=== PATIENT | male | born 1995 | race Caucasian/White ===

== ENCOUNTER 2023-04-13 06:46 | Emergency (ER) | payer OTHER ==
[~2023-04-13] VITALS: Ht 180 cm; Wt 77.0 kg
[2023-04-13] MEDS ORDERED: fentaNYL INJECTION 100 MCG/2 ML VIAL IVP ONE (07:15)
[2023-04-13] MEDS ORDERED: LACTATED RINGERS 1,000 ML 1,000 ML IV ONE ×2 (07:15→08:30)
[2023-04-13 07:34] LABS: BASOPHILS % (AUTO) 0 % (0-10); EOSINOPHILS % (AUTO) 0 % (0-10); HEMATOCRIT 45 % (40-54); HEMOGLOBIN 15.7 g/dL (13.3-17.7); LYMPHOCYTES % (AUTO) 5 % (12-44); MEAN CORPUSCULAR HEMOGLOBIN 30 pg (25-34); MEAN CORPUSCULAR HGB CONC 35 g/dL (32-36); MEAN CORPUSCULAR VOLUME 86 fL (80-99); MEAN PLATELET VOLUME 9.9 fL (9.0-12.2); MONOCYTES # (AUTO) 2.5 X 10^3 (0.0-1.0); MONOCYTES % (AUTO) 11 % (0-12); NEUTROPHILS # (AUTO) 18.3 X 10^3 (1.8-7.8); NEUTROPHILS % (AUTO) 84 % (42-75); PLATELET COUNT 273 10^3/uL (130-400)
[2023-04-13 07:40] LABS: ALBUMIN 4.3 GM/DL (3.2-4.5); POTASSIUM 3.7 MMOL/L (3.6-5.0)
[2023-04-13 07:41] LABS: CALCIUM 9.8 MG/DL (8.5-10.1)
[2023-04-13 07:43] LABS: TOTAL PROTEIN 7.8 GM/DL (6.4-8.2)
[2023-04-13 07:44] LABS: BILIRUBIN,TOTAL 1.4 MG/DL (0.1-1.0)
[2023-04-13 07:46] LABS: CREATININE SERUM 1.57 MG/DL (0.60-1.30)
--- NOTE | 2023-04-13 07:52 | ED Abdominal Pain ---
General Chief Complaint: Abdominal/GI Problems Stated Complaint: PX ON LEFT SIDE,ABD & BACK PX Nursing Triage Note: PT AMB TO [facility] WITH FAMILY WITH C/O L BACK AND ABD PAIN X2 DAYS THAT IS CONSTANT. PT HAS TAKEN IBUPROFEN WITHOUT RELIEF Source of Information: Patient Exam Limitations: No Limitations History of Present Illness Date Seen by Provider: Apr 13, 2023 Time Seen by Provider: 07:06 Initial Comments This 27 year old gentleman presents to the ER accompanied by his parents with left sided abdominal, flank pain, and lower back pain. Pain started 2 days ago and has gradually worsened. He denies any associated symptoms such as nausea, diarrhea, constipation, diarrhea, fever, chills, hematuria, or dysuria. He reports his pain as 10/10. He reports prior episodes of pain in this area after drinking alcohol, but he denies any recent alcohol use. His parents are concerned about a possible ureteral stone. Allergies and Home Medications Allergies Coded Allergies: No Known Drug Allergies (Unverified , 04/13/23) Patient Home Medication List Home Medication List Reviewed: Yes Review of Systems Review of Systems Constitutional: no symptoms reported EENTM: No Symptoms Reported Respiratory: No Symptoms Reported Cardiovascular: No Symptoms Reported Gastrointestinal: See HPI Genitourinary: No Symptoms Reported Musculoskeletal: no symptoms reported Skin: no symptoms reported Psychiatric/Neurological: No Symptoms Reported Endocrine: No Symptoms Reported Hematologic/Lymphatic: No Symptoms Reported Past Rsxapol-Dgdlwc-Eluzgu Hx Patient Social History Tobacco Use?: No Use of E-Cig and/or Vaping dev: No Substance use?: No Alcohol Use?: Yes Alcohol Frequency: Rarely Pt feels they are or have been: No Immunizations Up To Date Influenza Vaccine Up-to-Date: No; Not Current Past Medical History Surgery/Hospitalization HX: BLADDER SURGERY CHILD Surgeries: Yes Bladder Surgery (Urinary tract surgery as a young child to correct urinary frequency) Respiratory: No Cardiac: No Neurological: No Reproductive Disorders: No Genitourinary: No Gastrointestinal: Yes (Urinary frequency as a child, surgically corrected) Musculoskeletal: No HEENT: No Cancer: No Did You Recieve Any Treatments: No Psychosocial: No Integumentary: No Physical Exam Vital Signs Vital Signs - First Documented 04/13/23 07:03 Temp 37.4 Pulse 97 Resp 17 B/P (MAP) 154/111 (125) Pulse Ox 99 O2 Delivery Room Air Capillary Refill : Height/Weight/BMI Height: '" Weight: lbs. oz. kg; 23.00 BMI Method: General Appearance: WD/WN, no apparent distress HEENT: normal ENT inspection, pharynx normal Neck: normal inspection Respiratory: lungs clear, normal breath sounds, no respiratory distress Cardiovascular: regular rate, rhythm, no edema, no murmur Gastrointestinal: normal bowel sounds, soft; No distended; tenderness ( Tenderness throughout the left abdomen and flank) Extremities: normal inspection, no pedal edema Back: No CVA tenderness (R); CVA tenderness (L) (Minimal) Neurologic/Psychiatric: machine group leader II-XII nml as tested, no motor/sensory deficits, alert, normal mood/affect, oriented x 3 Skin: normal color, warm/dry Focused Exam Lactate Level 04/13/23 08:25: Lactic Acid Level 1.75 Lactic Acid Level Laboratory Tests Test 04/13/23 08:25 Lactic Acid Level 1.75 MMOL/L (0.50-2.00) Progress/Results/Core Measures Results/Orders Lab Results Laboratory Tests Test 04/13/23 07:19 04/13/23 07:34 04/13/23 08:25 Range/Units White Blood Count 22.0 H 4.3-11.0 10^3/uL Red Blood Count 5.17 4.30-5.52 10^6/uL Hemoglobin 15.7 13.3-17.7 g/dL Hematocrit 45 40-54 % Mean Corpuscular Volume 86 80-99 fL Mean Corpuscular Hemoglobin 30 25-34 pg Mean Corpuscular Hemoglobin Concent 35 32-36 g/dL Red Cell Distribution Width 13.2 10.0-14.5 % Platelet Count 273 130-400 10^3/uL Mean Platelet Volume 9.9 9.0-12.2 fL Immature Granulocyte % (Auto) 1 % Neutrophils (%) (Auto) 84 H 42-75 % Lymphocytes (%) (Auto) 5 L 12-44 % Monocytes (%) (Auto) 11 0-12 % Eosinophils (%) (Auto) 0 0-10 % Basophils (%) (Auto) 0 0-10 % Neutrophils # (Auto) 18.3 H 1.8-7.8 X 10^3 Lymphocytes # (Auto) 1.0 1.0-4.0 X 10^3 Monocytes # (Auto) 2.5 H 0.0-1.0 X 10^3 Eosinophils # (Auto) 0.0 0.0-0.3 10^3/uL Basophils # (Auto) 0.0 0.0-0.1 10^3/uL Immature Granulocyte # (Auto) 0.1 0.0-0.1 10^3/uL Prothrombin Time 16.2 H 12.2-14.7 SEC INR Comment 1.2 0.8-1.4 Activated Partial Thromboplast Time 33 24-35 SEC Sodium Level 137 135-145 MMOL/L Potassium Level 3.7 3.6-5.0 MMOL/L Chloride Level 105 98-107 MMOL/L Carbon Dioxide Level 19 L 21-32 MMOL/L Anion Gap 13 5-14 MMOL/L Blood Urea Nitrogen 20 H 7-18 MG/DL Creatinine 1.57 H 0.60-1.30 MG/DL Estimat Glomerular Filtration Rate 61 BUN/Creatinine Ratio 13 Glucose Level 140 H 70-105 MG/DL Calcium Level 9.8 8.5-10.1 MG/DL Corrected Calcium 9.6 8.5-10.1 MG/DL Total Bilirubin 1.4 H 0.1-1.0 MG/DL Aspartate Amino Transf (AST/SGOT) 12 5-34 U/L Alanine Aminotransferase (ALT/SGPT) 30 0-55 U/L Alkaline Phosphatase 64 40-136 U/L C-Reactive Protein High Sensitivity 22.06 H 0.00-0.50 MG/DL Total Protein 7.8 6.4-8.2 GM/DL Albumin 4.3 3.2-4.5 GM/DL Lipase 11 8-78 U/L Urine Color DARK YELLOW Urine Clarity CLOUDY Urine pH 6.0 5-9 Urine Specific [place] >=1.030 1.016-1.022 Urine Protein 3+ H NEGATIVE Urine Glucose (UA) NEGATIVE NEGATIVE Urine Ketones 2+ H NEGATIVE Urine Nitrite NEGATIVE NEGATIVE Urine Bilirubin 1+ H NEGATIVE Urine Urobilinogen 0.2 < = 1.0 MG/DL Urine Leukocyte Esterase 1+ H NEGATIVE Urine RBC (Auto) 3+ H NEGATIVE Urine RBC 25-50 H /HPF Urine WBC >100 H /HPF Urine Crystals NONE /LPF Urine Bacteria MODERATE H /HPF Urine Casts NONE /LPF Urine Mucus NEGATIVE /LPF Urine Culture Indicated YES Lactic Acid Level 1.75 0.50-2.00 MMOL/L My Orders Orders - SHANAE FLORES MD Cbc And Automated Diff (04/13/23 07:11) Comprehensive Metabolic Panel (04/13/23 07:11) Hs C Reactive Protein (04/13/23 07:11) Lipase (04/13/23 07:11) Ua Culture If Indicated (04/13/23 07:11) Ed Iv/Invasive Line Start (04/13/23 07:11) Lactated Ringers 1,000 Ml (Lactated Ring (04/13/23 07:15) Fentanyl Injection (Fentanyl Injection (04/13/23 07:15) Morphine Injection (Morphine Injection (04/13/23 08:00) Ct Abdomen/Pelvis W (04/13/23 08:07) Urine Culture (04/13/23 07:34) Blood Culture (04/13/23 08:20) Protime With Inr (04/13/23 08:20) Partial Thromboplastin Time (04/13/23 08:20) Vital Signs Adult Sepsis Patie Q15M (04/13/23 08:20) Remove Rings In Anticipation O (04/13/23 08:20) Lactic Acid Analyzer (04/13/23 08:20) Lactated Ringers 1,000 Ml (Lactated Ring (04/13/23 08:30) Chlamydia Trachomatis Urine (04/13/23 08:20) Neis Owen Dna Urine Test (04/13/23 08:20) Ceftriaxone Iv/Im (Ceftriaxone Iv/Im) (04/13/23 08:20) Iohexol Injection (Omnipaque 350 Mg/Ml 1 (04/13/23 08:45) Received Contrast (Hold Metformin- Contr (04/13/23 08:45) Ns (Ivpb) 100 Ml (Sodium Chloride 0.9% 1 (04/13/23 08:45) Morphine Injection (Morphine Injection (04/13/23 10:11) Hydromorphone Injection (Hydromorphone (04/13/23 12:00) Medications Given in ED Current Medications Medications Dose Ordered Sig/Stephanie Route Start Time Stop Time Status Last Admin Dose Admin Fentanyl Citrate 50 mcg ONCE ONCE IVP 04/13/23 07:15 04/13/23 07:16 DC 04/13/23 07:25 50 MCG Hydromorphone HCl 0.5 mg ONCE ONCE IV 04/13/23 12:00 04/13/23 12:01 DC 04/13/23 12:12 0.5 MG Iohexol 100 ml ONCE ONCE IV 04/13/23 08:45 04/13/23 08:46 DC 04/13/23 08:55 80 ML Lactated Ringer's 1,000 ml @ 0 mls/hr Q0M ONCE IV 04/13/23 07:15 04/13/23 07:16 DC 04/13/23 07:25 1,000 MLS/HR Lactated Ringer's 1,000 ml @ 0 mls/hr Q0M ONCE IV 04/13/23 08:30 04/13/23 08:31 DC 04/13/23 08:56 1,000 MLS/HR Morphine Sulfate 4 mg ONCE ONCE IVP 04/13/23 08:00 04/13/23 08:01 DC 04/13/23 08:11 4 MG Sodium Chloride 100 ml ONCE ONCE IV 04/13/23 08:45 04/13/23 08:46 DC 04/13/23 08:55 80 ML Vital Signs/I&O 04/13/23 04/13/23 07:03 12:18 Temp 37.4 37.4 Pulse 97 92 Resp 17 14 B/P (MAP) 154/111 (125) 142/93 Pulse Ox 99 98 O2 Delivery Room Air Room Air Blood Pressure Mean: 125 Progress Progress Note #1: Time: 07:56 Progress Note Patient was interviewed and examined by me promptly upon being roomed during the nursing triage. Patient was offered pain control which he eagerly excepted. Fentanyl 50 mcg IV was administered. He denied any need for treatment of nausea. He is being hydrated with 1 L LR. Some labs have been resulted and have been interpreted by me. CBC was remarkable for significant leukocytosis of 22,000. CBC was otherwise unremarkable. CMP is notable for an elevated creatinine of 1.57 and elevated BUN of 20. GFR is 61. Bilirubin was minimally elevated at 1.4. Transaminases were unremarkable. Lipase was only 11. Urinalysis and CRP are still pending. Progress Note #2: Time: 08:24 Progress Note Patient reported persistent pain after receiving fentanyl. Further treatment with morphine was provided. Labs have now been fully reviewed and interpreted by me. CRP was significantly elevated at 22. Urine demonstrated gross pyuria with 25-50 RBC, greater than 100 WBC, moderate bacteria, 1+ leukocyte Estrace, and 2+ ketones. Additional orders to complete septic workup have been placed including blood cultures and lactic acid. Antibiotic therapy will be initiated with Rocephin. An additional liter of LR is being infused. CT scan of the abdomen and pelvis has been ordered. I have requested inclusion of the delayed films due to patient's history of urinary tract surgery. Progress Note #3: Time: 10:[address] scan was reviewed by me. The left kidney appeared cystic with hydronephrosis. The ureter was not well-visualized and there appeared to be no hydroureter or ureteral stone. There was little to no contrast into the kidney on the delayed images. Stones were noted within the kidney. Radiologist's report was also reviewed as noted below. I consulted with Dr. Lopez, local urologist on-call. This may be a rather complicated urologic case due to presence of infection and apparent stenosis of the proximal ureter. Dr. Lopez is not physically present in the hospital today and will not be available over the weekend. He is recommending transfer and admission at a tertiary care center that can provide full urology services through the weekend, preferably a comprehensive academic center that can provide a variety of procedures including percutaneous drain placement, nephrectomy, etc. Lactic acid had been drawn and was normal. Blood cultures are pending. Patient reported very little relief of pain with the opioids provided. An additional morphine 6 mg dose was ordered. Progress Note #4: Time: 11:15 Progress Note I have discussed transfer to [facility] with the patient and his family. They are agreeable. Report has been given to the grant coordinator team, and I am awaiting callback. Progress Note #5: Time: 11:55 Progress Note Transfer was excepted to [facility] by Dr. Chris Marte. Room assignment is pending. Transfer by [facility] is anticipated. Patient has requested "a stronger dose of morphine." He has already received a total of morphine 10 mg IV. We will try Dilaudid 0.5 mg. Hopefully this will give him better relief. Diagnostic Imaging Diagonstic Imaging: CT Plain Films/CT/US/NM/MRI: abdomen, pelvis Comments NAME: MAGALIE THOMASWILMA Mendez [facility] REC#: [id number] PT STATUS: REG ER : 1995 PHYSICIAN: SHANAE FLORES MD ADMIT DATE: 04/13/23/ER Draft Date of Exam:04/13/23 CT ABDOMEN/PELVIS W PROCEDURE: CT abdomen and pelvis with contrast. TECHNIQUE: Multiple contiguous axial images were obtained through the abdomen and pelvis after administration of intravenous contrast. Auto Exposure Controls were utilized during the CT exam to meet ALARA standards for radiation dose reduction. All CT scans use one or more of the following dose optimizing techniques: automated exposure control, MA and/or KvP adjustment based on patient size and exam type or iterative reconstruction. INDICATION: Left-sided abdominal pain, leukocytosis. COMPARISON: None available FINDINGS: Mild left basilar atelectasis. Tiny hiatal hernia. The liver and spleen are unremarkable. Pancreas is unremarkable. The gallbladder is unremarkable. The right kidney and right ureter are unremarkable. Opacified portions of the right ureter are unremarkable, though the distal right ureter is not well opacified. Severe left-sided hydronephrosis is present. Some regions of cortical thinning are identified within the left kidney. Multiple left renal calculi are present. The left renal pelvis is severely dilated with resulting mass effect upon the left renal vein. The left ureter itself appears unremarkable. No definite calculus within the left ureteropelvic junction. Delayed enhancement of the left kidney. No aneurysmal dilatation of the abdominal aorta. The appendix is unremarkable. The urinary bladder is unremarkable. No bowel obstruction. No significant adenopathy, free air, or free fluid within the abdomen or pelvis. No acute osseous abnormality. IMPRESSION: Severe left-sided hydronephrosis without hydroureter. 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 A component of this is likely chronic given associated cortical thinning. Multiple left renal calculi are present within the kidney itself. Delayed enhancement and excretion of the left kidney consistent with poor function. Tiny hiatal hernia. Dictated on workstation # [id number] Dict: 04/13/23900 Trans: 04/13/23911 [facility] [id number] Interpreted by: IZABELLA RODRIGUEZ MD Departure Impression Primary Impression: Pyelonephritis Additional Impressions: Sepsis Qualified Codes: A41.9 - Sepsis, unspecified organism Ureteral stenosis Disposition: [facility] Condition: Stable Transfer Transfer Reason: Exceeds level of care Time Spoke to Accepting Phy: 11:50 Transfer Progress Notes Transfer accepted by Dr. Chris Marte at [facility]. Transfer Time: 13:00 Transfer Facility: [facility] Method of Transfer: EMS Departure-Patient Inst. Referrals: [facility] (PCP/Family) Primary Care Physician Copy Copies To 1: [facility] JOSHUA T MD Apr 13, 2023 07:52
[2023-04-13] MEDS ORDERED: morphine INJ 4 MG/ML 1 ML (VIAL/SYRINGE) IVP ONE (08:00)
[2023-04-13 08:05] LABS: CLARITY,URINE CLOUDY; COLOR,URINE DARK YELLOW
[2023-04-13 08:08] LABS: BACTERIA,URINE MODERATE /HPF; BILIRUBIN,URINE 1+ (NEGATIVE); GLUCOSE, URINE (UA) NEGATIVE (NEGATIVE); KETONES,URINE 2+ (NEGATIVE); LEUKOCYTE ESTERASE ,URINE 1+ (NEGATIVE); NITRITE,URINE NEGATIVE (NEGATIVE); PROTEIN,URINE 3+ (NEGATIVE); RBC,URINE 25-50 /HPF; WBC,URINE >100 /HPF
[2023-04-13] MEDS ORDERED: cefTRIAXone IV/IM 1,000 MG in NS (IVPB) 50 ML 50 ML IV STA (08:20)
[2023-04-13] MEDS ORDERED: NS 100 ML (IVPB) BAG IV ONE (08:45)
[2023-04-13] MEDS ORDERED: IOHEXOL 350 MG/ML 100 ML (OMNIPAQUE 350) VIAL IV ONE (08:45)
[2023-04-13] MEDS ORDERED: HOLD METFORMIN - RECEIVED CONTRAST 20 ML VIAL IV SCH (08:45)
[2023-04-13 09:06] LABS: INR 1.2 (0.8-1.4); PROTHROMBIN TIME PATIENT 16.2 SEC (12.2-14.7)
--- NOTE | 2023-04-13 09:12 | Diagnostic Imaging Report ---
PROCEDURE: CT abdomen and pelvis with contrast. TECHNIQUE: Multiple contiguous axial images were obtained through the abdomen and pelvis after administration of intravenous contrast. Auto Exposure Controls were utilized during the CT exam to meet ALARA standards for radiation dose reduction. All CT scans use one or more of the following dose optimizing techniques: automated exposure control, MA and/or KvP adjustment based on patient size and exam type or iterative reconstruction. INDICATION: Left-sided abdominal pain, leukocytosis. COMPARISON: None available FINDINGS: Mild left basilar atelectasis. Tiny hiatal hernia. The liver and spleen are unremarkable. Pancreas is unremarkable. The gallbladder is unremarkable. The right kidney and right ureter are unremarkable. Opacified portions of the right ureter are unremarkable, though the distal right ureter is not well opacified. Severe left-sided hydronephrosis is present. Some regions of cortical thinning are identified within the left kidney. Multiple left renal calculi are present. The left renal pelvis is severely dilated with resulting mass effect upon the left renal vein. The left ureter itself appears unremarkable. No definite calculus within the left ureteropelvic junction. Delayed enhancement of the left kidney. No aneurysmal dilatation of the abdominal aorta. The appendix is unremarkable. The urinary bladder is unremarkable. No bowel obstruction. No significant adenopathy, free air, or free fluid within the abdomen or pelvis. No acute osseous abnormality. IMPRESSION: Severe left-sided hydronephrosis without hydroureter. 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 A component of this is likely chronic given associated cortical thinning. Multiple left renal calculi are present within the kidney itself. Delayed enhancement and excretion of the left kidney consistent with poor function. Tiny hiatal hernia. Dictated by: Dictated on workstation # [id number]
[2023-04-13] MEDS ORDERED: morphine INJ 10 MG/ML 1ML (SYR OR VIAL) IVP STA (10:11)
[2023-04-13] MEDS ORDERED: HYDROmorphone INJECTION 2 MG/ML VIAL IV ONE (12:00)
[2023-04-13 12:18] VITALS: BP 142/93
[2023-04-14 14:02] LABS: BAND NEUTROPHILS 4 %; BASOPHILS % (MANUAL) 0 %; EOSINOPHILS % (MANUAL) 0 %; LYMPHOCYTES % (MANUAL) 5 %; MONOCYTES % (MANUAL) 8 %; NEUTROPHILS % (MANUAL) 83 %; RBC MORPH NORMAL
== END 2023-04-13 13:00 | disposition short-term general hospital (02) ==
LOC: EDUNIT# 06:46 → ER 06:51
DX: A41.9 Sepsis, unspecified organism (principal); N13.6 Pyonephrosis; Q62.10 Congenital occlusion of ureter, unspecified; E80.7 Disorder of bilirubin metabolism, unspecified; Z98.890 Other specified postprocedural states
CPT/HCPCS: 36415; 74177; 80053; 81000; 83605; 83690; 85007; 85025; 85027; 85610; 85730; 86141; 87040; 87088; 87186; 87491; 87591